=== PATIENT | female | born 1960 | race Caucasian/White ===

== ENCOUNTER 2017-02-08 09:03 | Emergency (ER) | payer MEDICAID ==
[2017-02-08 09:17] VITALS: BP 144/78
[2017-02-08] MEDS ORDERED: Cyclobenzaprine 10 MG Tab PO ONE (09:31)
[2017-02-08] MEDS ORDERED: HYDROmorphone 1 MG/ML Syringe IM ONE (09:31)
--- NOTE | 2017-02-08 09:36 | EDM.PDOC ---
ED HPI GENERAL MEDICAL PROBLEM - General Chief Complaint: Back Pain or Injury Stated Complaint: BACK PAIN Time Seen by Provider: 02/08/17 09:25 Source of Information: Reports: Patient History Limitations: Reports: No Limitations - History of Present Illness INITIAL COMMENTS - FREE TEXT/NARRATIVE: The patient presents with right lower back pain. This started yesterday after she was putting stuff into her storage unit. She did not fall. She has no bowel or bladder problems. She has no numbness or weakness. She has no problems with her back before. Onset: Gradual Duration: Day(s): (Yesterday) Location: Reports: Back (right lower) Quality: Reports: Sharp Severity: Severe Improves with: Reports: None Worsens with: Reports: None Context: Reports: Trauma (The patient was putting stuff in her storage unit yesterday and may have pulled a muscle.) Associated Symptoms: Reports: Other (Low back) Lower Back Pain Score (Numeric/FACES): 10 - Related Data Allergies Allergy/AdvReac Type Severity Reaction Status Date / Time No Known Allergies Allergy Verified 02/08/17 09:10 Home Meds: Home Meds . 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 ROUND BONER History: Reports: Musculoskeletal History: Reports: Arthritis Endocrine/Metabolic History: Reports: Diabetes, Type II Other Endocrine/Metabolic History: diet controlled, takes no meds. - Infectious Disease History Infectious Disease History: Reports: Chicken Pox, Measles, Mumps Social & Family History - Tobacco Use Smoking Status *Q: Never Smoker Second Hand Smoke Exposure: Yes - Caffeine Use Caffeine Use: Reports: Soda - Recreational Drug Use Recreational Drug Use: No ED ROS GENERAL - Review of Systems Review Of Systems: See Below Constitutional: Reports: No Symptoms HEENT: Reports: No Symptoms Respiratory: Reports: No Symptoms Cardiovascular: Reports: No Symptoms Endocrine: Reports: No Symptoms GI/Abdominal: Reports: No Symptoms : Reports: No Symptoms Musculoskeletal: Reports: Back Pain (Right lower back) Skin: Reports: No Symptoms Neurological: Reports: No Symptoms ED EXAM,LOWER BACK PAIN/INJURY - Physical Exam Exam: See Below Exam Limited By: No Limitations General Appearance: Alert, No Apparent Distress Ears: Normal External Exam Nose: Normal Inspection Head: Atraumatic, Normocephalic Neck: Normal Inspection Respiratory/Chest: No Respiratory Distress, Lungs Clear, Normal Breath Sounds Cardiovascular: Regular Rate, Rhythm, No Edema, No Murmur GI/Abdominal: Soft, Non-Tender, No Organomegaly, No Mass Back Exam: Other (Pain upon palpation to the right lower back.) Neurological: Alert, No Motor/Sensory Deficits, Oriented x 3 Course - Vital Signs Last Recorded V/S: Last Vital Signs Temp 98.0 F 02/08/17 09:05 Pulse 77 02/08/17 09:05 Resp 18 02/08/17 09:05 BP 144/78 H 02/08/17 09:05 Pulse Ox 97 02/08/17 09:05 - Re-Assessments/Exams Free Text/Narrative Re-Assessment/Exam: 02/08/17 09:36 I have ordered a shot of dilaudid 1mg IM and flexeril 10mg by mouth. I will give her a prescription for hydrocodone and flexeril. Departure - Departure Time of Disposition: 09:40 Disposition: Home, Self-Care 01 Condition: good Clinical Impression: Low back pain Qualifiers: Chronicity: acute Back pain laterality: right Sciatica presence: without sciatica Qualified Code(s): M54.5 - Low back pain Low back strain Qualifiers: Encounter type: initial encounter Qualified Code(s): S39.012A - Strain of muscle, fascia and tendon of lower back, initial encounter - Discharge Information Referrals: Nancy Oates PA-C [Primary Care Provider] - 1 Week Forms: ED Department Discharge Additional Instructions: Take the flexeril 2 times per day as needed for pain and the hydrocodone for pain. You may also take an antiinflammatory such as motrin or aleve. Follow up with your doctor in 1 week. Please return if you are worse.
== END 2017-02-08 09:55 | disposition home or self-care (01) ==
LOC: JD.ED 09:03
DX: S39.012A Strain of muscle, fascia and tendon of lower back, initial encounter (principal); M54.5 Low back pain
CPT/HCPCS: 96372; 99283; A9270; J1170

== ENCOUNTER 2019-12-16 22:32 | Emergency (ER) | payer OTHER ==
[2019-12-16] MEDS ORDERED: Ondansetron 4 MG Tab.DIS PO ONE (22:56)
--- NOTE | 2019-12-16 23:03 | EDM.PDOC ---
ED HPI GENERAL MEDICAL PROBLEM - General Chief Complaint: Trauma Stated Complaint: HEAD INJURY FROM FALL Time Seen by Provider: 12/16/19 22:42 Source of Information: Reports: Patient History Limitations: Reports: No Limitations - History of Present Illness INITIAL COMMENTS - FREE TEXT/NARRATIVE: A trauma alert was called for this patient. Ms. Dominguez is a pleasant 59-year-old woman with a past medical history significant for prediabetes, who states that she slipped on ice in the parking lot as she was leaving work last night, , 12/15/2019, falling backwards, and striking the back of her head. She was able to describe how her feet suddenly went straight out from underneath her, but she states that her coworkers, who witnessed her fall, told her that she was unconscious for 10 minutes. When she woke up, she states that she felt fine, however, she now presents to the ED because she has been feeling lightheaded, with a headache today. She states that she vomited twice today. She states that there was a slight amount of bleeding from her posterior scalp last night. She states that other than the back right of her head, where she struck the ground, she is uninjured. Here in the ED, the patient's initial BP is found to be elevated at 162/79, otherwise, she is hemodynamically stable, afebrile, saturating 98% on room air. The patient denies recent fever, chills, sore throat, ear pain, nasal or sinus congestion, cough, dyspnea, chest pain, palpitations, nausea, vomiting, constipation, diarrhea, abdominal pain, urinary symptoms, recent weight gain or weight loss, recent bloody bowel movements or black bowel movements, recent joint aches, headaches, or rashes. The patient's PCP is KIMBERLEE Matthew. She did not receive an influenza vaccine this season, and declined an offer to receive one here today. Headache Pain Score (Numeric/FACES): 10 - Related Data Allergies Allergy/AdvReac Type Severity Reaction Status Date / Time No Known Allergies Allergy Verified 12/16/19 22:55 Home Meds: Home Meds Ondansetron [Zofran ODT] 1 tab PO Q8H PRN #10 tab.dis 12/16/19 [Rx] Past Medical History HEENT History: Reports: Impaired Vision Other HEENT History: wears eyeglasses Endocrine/Metabolic History: Reports: Other (See Below) (Prediabetes) - Infectious Disease History Infectious Disease History: Reports: Chicken Pox, Measles, Mumps - Past Surgical History HEENT Surgical History: Reports: Oral Surgery (edentulous) Female Surgical History: Reports: Nephrectomy (right, 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 ED EXAM, GENERAL - Physical Exam Exam: See Below Exam Limited By: No Limitations General Appearance: Alert, WD/WN, No Apparent Distress Eye Exam: Bilateral Eye: EOMI, Normal Inspection, PERRL Ears: Normal External Exam, Normal Canal, Hearing Grossly Normal, Normal TMs Nose: Normal Inspection, Normal Mucosa, No Blood Throat/Mouth: Normal Inspection, Normal Lips, Normal Gums, Normal Oropharynx, Normal Voice, No Airway Compromise, Other (Edentulous) Head: Atraumatic (no visible or palpable abnormality the right occiput, where the patient states she struck her head, such as swelling, erythema, ecchymosis, or abrasion. No tenderness to palpation.), Normocephalic Neck: Normal Inspection, Supple, Non-Tender, Full Range of Motion Respiratory/Chest: No Respiratory Distress, Lungs Clear, Normal Breath Sounds, No Accessory Muscle Use Cardiovascular: Normal Peripheral Pulses, Regular Rate, Rhythm, No Edema, No Gallop, No JVD, No Murmur, No Rub Peripheral Pulses: 4+: Radial (L), Radial (R) GI/Abdominal: Normal Bowel Sounds, Soft, Non-Tender, No Organomegaly, No Distention, No Abnormal Bruit, No Mass (Female) Exam: Deferred Rectal (Female) Exam: Deferred Back Exam: Normal Inspection, Full Range of Motion, NT Extremities: Normal Inspection, Normal Range of Motion, No Pedal Edema, Normal Capillary Refill Neurological: Alert, Oriented, CN II-XII Intact, Normal Cognition, No Motor/ Sensory Deficits Psychiatric: Normal Affect Skin Exam: Warm, Dry, Intact, Normal Color, No Rash Course - Vital Signs Last Recorded V/S: Last Vital Signs Temp 36.3 C 12/16/19 22:42 Pulse 59 L 12/16/19 23:35 Resp 18 12/16/19 23:35 BP 166/59 H 12/16/19 23:35 Pulse Ox 92 L 12/16/19 23:35 - Orders/Labs/Meds Orders: Active Orders 24 hr Category Date Time Status Head wo Cont [CT] Stat Exams 12/16/19 22:58 Taken Meds: Medications Discontinued Medications Generic Name Dose Route Start Last Admin Trade Name Saritha PRN Reason Stop Dose Admin Ondansetron HCl 4 mg 12/16/19 22:56 12/16/19 23:02 Zofran Odt PO 12/16/19 22:57 4 mg ONETIME ONE Administration - Re-Assessments/Exams Free Text/Narrative Re-Assessment/Exam: 12/16/19 22:59 As above, the patient reports that she slipped on ice, falling backwards, striking the back of her head. While she has no amnesia of the event itself, she states that her coworkers told her that she was unconscious for 10 minutes. She states that she then felt fine, but that today she is feeling lightheaded , with a headache, and that she vomited twice today. Her neurologic exam is completely normal, nevertheless, because of her report of vomiting, she does meet NICE criteria to undergo an emergency CT scan of her head, which I have ordered. In the meantime, the patient will be given oral Zofran to treat her current nausea. 12/16/19 23:33 CT of the head without contrast as read by Josue as "mild soft tissue contusion of the posterior head. No acute intracranial process." Based on the above, I will discharge the patient home with a prescription for Zofran. 12/16/19 23:39 The above was discussed with the patient. She would like a note to be off work until Thursday. Departure - Departure Time of Disposition: 23:34 Disposition: Home, Self-Care 01 Condition: Good Clinical Impression: Fall from slipping on ice, Scalp contusion - Discharge Information *PRESCRIPTION DRUG MONITORING PROGRAM REVIEWED*: Not Applicable *COPY OF PRESCRIPTION DRUG MONITORING REPORT IN PATIENT HPU: Not Applicable Prescriptions: Ondansetron [Zofran ODT] 1 tab PO Q8H PRN #10 tab.dis PRN Reason: Nausea/Vomiting Instructions: Facial or Scalp Contusion, [id number] Referrals: Nancy Oates PA-C [Primary Care Provider] - Forms: ED Department Discharge, ED Return to Work/School Form Additional Instructions: You were seen in the emergency room after slipping on ice and falling, striking the back of your head on night. Work-up in the ER included a CT scan of your head, which returned negative. You do not have a skull fracture or an intracranial injury. Based on your history and physical exam, you do not have a concussion, and therefore no special treatment is required. You may take [id number] Tylenol or ibuprofen as needed for scalp discomfort. A prescription for the anti-nausea medicine Zofran has been sent to the [facility], located just south and across the [address] from [facility]. Dissolve 1 tablet of Zofran on your tongue up to every 8 hours, as needed for nausea/vomiting. If any other problems, please do not hesitate to return to the ER. Sepsis Event Note - Evaluation Sepsis Screening Result: No Definite Risk - Focused Exam Vital Signs: Vital Signs Temp Pulse Resp BP Pulse Ox 12/16/19 23:35 59 L 18 166/59 H 92 L 12/16/19 22:42 36.3 C 63 18 162/79 H 98 Date Exam was Performed: 12/17/19 Time Exam was Performed: 01:04 - My Orders Last 24 Hours: My Active Orders 12/16/19 22:58 Head wo Cont [CT] Stat - Assessment/Plan Last 24 Hours: My Active Orders 12/16/19 22:58 Head wo Cont [CT] Stat
[2019-12-16 23:36] VITALS: BP 166/59; PULSE 59
--- NOTE | 2019-12-17 09:55 | CT ---
Head CT Technique: Multiple axial sections through the brain were obtained. Intravenous contrast was not utilized. Comparison: No prior intracranial imaging is available. Findings: Ventricles along with basal cisterns and sulci over the convexities are within normal limits for the patient's age. No abnormal parenchymal densities are seen. No evidence of intracranial hemorrhage. No midline shift or mass-effect is seen. Soft tissue swelling seen within the upper posterior scalp. Bone window settings were reviewed. Nothing acute is seen within the visualized mastoid or visualized paranasal sinuses. No acute calvarial abnormality is identified. Impression: 1. Soft tissue swelling within the upper posterior scalp. 2. No acute intracranial abnormality is identified. Diagnostic code #2 This report was dictated in MDT I agree with preliminary report from Josue, finalized on 12/17/19, 12:27 AM Central Time
== END 2019-12-16 23:55 | disposition home or self-care (01) ==
LOC: JD.ED 22:32
DX: S00.03XA Contusion of scalp, initial encounter (principal); W00.0XXA Fall on same level due to ice and snow, initial encounter; Y92.481 Parking lot as the place of occurrence of the external cause
CPT/HCPCS: 70450; 99284; A9270; 99283

== ENCOUNTER 2020-03-25 16:26 | Emergency (ER) | payer SELFPAY ==
[2020-03-25 17:21] VITALS: BP 148/80; PULSE 77
--- NOTE | 2020-03-25 18:01 | EDM.PDOC ---
ED HPI GENERAL MEDICAL PROBLEM - General Chief Complaint: ENT Problem Stated Complaint: EARS ARE PLUGGED Time Seen by Provider: 03/25/20 17:40 Source of Information: Reports: Patient History Limitations: Reports: No Limitations - History of Present Illness INITIAL COMMENTS - FREE TEXT/NARRATIVE: Ms. Dominguez is a pleasant 60-year-old woman who now presents to the ED stating that she has had off of hearing, with the sensation of her ears being plugged, for the past 2 days. She denies having any ear pain. She denies having a sore throat or rhinorrhea. She states that she had similar symptoms about 6 months ago, which resolved after her ears were irrigated at the walk-in clinic. Here in the ED, the patient's initial BP is found to be mildly elevated at 148/80, otherwise, she is hemodynamically stable, afebrile, saturating 95% on room air. Other than the ear issue, the patient denies recent fever, chills, sore throat, ear pain, nasal or sinus congestion, cough, dyspnea, chest pain, palpitations, nausea, vomiting, constipation, diarrhea, abdominal pain, urinary symptoms, recent weight gain or weight loss, recent bloody bowel movements or black bowel movements, recent joint aches, headaches, or rashes. The patient's PCP is KIMBERLEE Matthew. - Related Data Allergies Allergy/AdvReac Type Severity Reaction Status Date / Time No Known Allergies Allergy Verified 03/25/20 17:20 Home Meds: Home Meds Ondansetron [Zofran ODT] 1 tab PO Q8H PRN #10 tab.dis 12/16/19 [Rx] Past Medical History HEENT History: Reports: Impaired Vision (wears glasses) Endocrine/Metabolic History: Reports: Other (See Below) (Prediabetes) - Infectious Disease History Infectious Disease History: Reports: Chicken Pox, Measles, Mumps - Past Surgical History HEENT Surgical History: Reports: Oral Surgery (Dental extractions) Female Surgical History: Reports: Nephrectomy (right, 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 ED EXAM, ENT - Physical Exam Exam: See Below Exam Limited By: No Limitations General Appearance: Alert, WD/WN, No Apparent Distress Eye Exam: Bilateral Eye: EOMI, Normal Inspection Ears: Normal External Exam, Hearing Grossly Normal (once the cerumen was removed), Normal TMs (once the cerumen was removed), TM Obscured by Cerumen (complete ont he left, near-complete on the right). No: Canal Swelling Nose: Normal Inspection, Normal Mucousa, No Blood Mouth/Throat: Normal Inspection, Normal Gums, Normal Lips, Normal Oropharynx, Other (Edentulous) Head: Atraumatic, Normocephalic Neck: Normal Inspection, Supple, Non-Tender, Full Range of Motion. No: Lymphadenopathy (L), Lymphadenopathy (R) Course - Vital Signs Last Recorded V/S: Last Vital Signs Temp 37.0 C 03/25/20 17:19 Pulse 77 03/25/20 17:19 Resp 16 03/25/20 17:19 BP 148/80 H 03/25/20 17:19 Pulse Ox 95 03/25/20 17:19 - Re-Assessments/Exams Free Text/Narrative Re-Assessment/Exam: 03/25/20 17:55 As above, the patient complained of 2 days of muffled hearing, feeling like her ears were plugged. On examination, her left external auditory canal was comple tely occluded with britney cerumen, while her right external auditory canal was partially occluded. I irrigated both ear canals with warm water, with complete evacuation of the cerumen on the left, and near-complete evacuation of the cerumen on the right. Going forward, I recommended to the patient that she use [id number] Debrox for a few days to soften any earwax, before following up with PCP for ear canal irrigation. Departure - Departure Time of Disposition: 17:57 Disposition: Home, Self-Care 01 Condition: Good Clinical Impression: Impacted cerumen of both ears - Discharge Information *PRESCRIPTION DRUG MONITORING PROGRAM REVIEWED*: Not Applicable *COPY OF PRESCRIPTION DRUG MONITORING REPORT IN PATIENT PHU: Not Applicable Instructions: Earwax Buildup, Adult Referrals: Nancy Oates PA-C [Primary Care Provider] - Forms: ED Department Discharge Additional Instructions: You were seen in the emergency room after having a muffled sound in both of your ears for the past couple of days. On examination, you had complete occlusion of your left ear canal with ear wax, and near-complete occlusion of your right ear canal with earwax. Both of your ear canals were irrigated with warm water, with complete removal of the earwax on the left, and near-complete removal of the earwax on the right. Going forward, if you redevelop symptoms of muffled hearing, we recommend that you use [id number] Debrox in the affected ear for several days, then follow-up with your PCP for ear canal irrigation. If any other problems, please do not hesitate to return to the ER. to return to the ER. Sepsis Event Note (ED) - Evaluation Sepsis Screening Result: No Definite Risk - Focused Exam Vital Signs: Vital Signs Temp Pulse Resp BP Pulse Ox 03/25/20 17:19 37.0 C 77 16 148/80 H 95
== END 2020-03-25 18:30 | disposition home or self-care (01) ==
LOC: JD.ED 16:26
DX: H61.23 Impacted cerumen, bilateral (principal)
CPT/HCPCS: 69209; 99282

== ENCOUNTER 2023-11-02 21:22 | Emergency (ER) | payer SELFPAY ==
[2023-11-02] MEDS: Sodium Chloride 0.9% 10 ML Syringe FLUSH PRN (21:46)
[2023-11-02 21:47] LABS: BASOPHILS ABSOLUTE AUTO 0.1 K/mm3 (0.0-0.2); BASOPHILS PERCENT AUTO 0.5 % (0.0-1.0); EOSINOPHILS ABSOLUTE AUTO 0.2 K/mm3 (0.0-0.4); EOSINOPHILS PERCENT AUTO 1.1 % (0.0-6.0); HEMATOCRIT 41.3 % (37.0-47.0); HEMOGLOBIN 13.8 gm/dl (12.0-16.0); IMMATURE GRAN ABSOLUTE AUTO 0.04 K/mm3 (0.00-0.05); IMMATURE GRAN PERCENT AUTO 0.3 % (0.0-0.4); LYMPHOCYTES ABSOLUTE AUTO 2.1 K/mm3 (1.0-4.8); LYMPHOCYTES PERCENT AUTO 15.1 % (24.0-44.0); MEAN CORPUSCULAR HEMOGLOBIN 31.5 pg (28.0-32.0); MEAN CORPUSCULAR HGB CONC 33.4 g/dl (32.0-36.0); MEAN CORPUSCULAR VOLUME 94.3 fl (83.0-99.0); MEAN PLATELET VOLUME 9.2 fl (9.4-12.3); MONOCYTES ABSOLUTE AUTO 0.9 K/mm3 (0.0-0.8); MONOCYTES PERCENT AUTO 6.3 % (0.0-8.0); NEUTROPHILS ABSOLUTE AUTO 10.4 K/mm3 (1.8-7.7); NEUTROPHILS PERCENT AUTO 76.7 % (41.0-71.0); PLATELET COUNT,PLT 268 K/mm3 (150-400); RED BLOOD CELL COUNT 4.38 M/mm3 (4.10-5.30); WHITE BLOOD CELL COUNT,WBC 13.59 K/mm3 (3.9-11.3)
[2023-11-02 22:07] LABS: A/G RATIO 0.9 (1-2); ALBUMIN 3.3 g/dl (3.4-5.0); ANION GAP 14.7 (5-15); BILIRUBIN TOTAL 0.6 mg/dL (0.2-1.0); BUN/CREATININE RATIO 18.5 (14-18); CALCIUM 8.9 mg/dL (8.5-10.1); CREATININE 1.3 mg/dL (0.55-1.02); EST CRCL DRUG DOSING (CG) 37.59 mL/min; MAGNESIUM 1.8 mg/dL (1.8-2.4); POTASSIUM,K 4.7 mEq/L (3.5-5.1); PROTEIN TOTAL,TP 7.1 g/dl (6.4-8.2)
[2023-11-02 22:18] LABS: CORONAVIRUS COVID-19 NAA NEGATIVE (NEGATIVE); INFLUENZA A NAA NEGATIVE (NEGATIVE); RESPIRATORY SYNCYTIAL VIR NAA NEGATIVE (NEGATIVE)
[2023-11-02 22:39] LABS: HEMOGLOBIN A1C 13.9 %
[2023-11-02] MEDS ORDERED: Sodium Chloride 0.9% 1,000 ML IV SCH (23:15)
[2023-11-02] MEDS: Sodium Chloride 0.9% 100 ML IV SCH (23:25)
[2023-11-02] MEDS: Iopamidol 755 Mg/ML 100 ML Bottle IVPUSH ONE (23:25)
[2023-11-02 23:38] LABS: APPEARANCE,URINE SLT CLOUDY (Clear); BILIRUBIN,URINE NEGATIVE (Negative); COLOR,URINE LIGHT YELLOW (Yellow); GLUCOSE,URINE 2+ (Negative); KETONES,URINE NEGATIVE (Negative); LEUKOCYTE ESTERASE,URINE 1+ (Negative); NITRITE,URINE NEGATIVE (Negative); OCCULT BLOOD,URINE TRACE-LYSED (Negative); PROTEIN,URINE NEGATIVE (Negative); UROBILINOGEN,URINE 0.2 (0.2-1.0)
[2023-11-02 23:57] LABS: RBC,URINE 0-5 /hpf (0-5); WBC CLUMPS,URINE FEW /hpf (NOT SEEN); WBC,URINE 20-30 /hpf (0-5)
[2023-11-02 23:58] LABS: BACTERIA,URINE MANY /hpf (FEW); MUCUS,URINE NOT SEEN /hpf (FEW)
[2023-11-03] MEDS: Insulin Lispro 100 Unit/ML 3 ML KwikPen SUBCUT ONE (01:33)
[2023-11-03] MEDS: Heparin Sodium/D5W 25,000 UNITS/500 ML BAG IV SCH (01:34)
[2023-11-03] MEDS: Heparin Sodium 5,000 Units/ML Vial IVPUSH ONE ×2 (01:34→01:43)
[2023-11-03 02:41] VITALS: BP 138/83; PULSE 107
== END 2023-11-03 02:28 ==
LOC: JD.ED 21:22
DX: E10.22 Type 1 diabetes mellitus with diabetic chronic kidney disease (principal); N18.2 Chronic kidney disease, stage 2 (mild); E10.65 Type 1 diabetes mellitus with hyperglycemia; R79.89 Other specified abnormal findings of blood chemistry
CPT/HCPCS: 0241U; 36415; 71045; 71275; 80053; 81001; 82947; 83036; 83735; 84484; 85025; 85379; 85730; 93005; 96365; 99285; J1644; J1815; J3490; Q9967

== ENCOUNTER 2025-07-10 19:07 | Emergency (ER) | payer SELFPAY ==
[2025-07-10] MEDS ORDERED: Sodium Chloride 0.9% 10 ML Syringe FLUSH PRN (19:28)
[2025-07-10 19:51] LABS: BASOPHILS ABSOLUTE AUTO 0.1 K/mm3 (0.0-0.2); BASOPHILS PERCENT AUTO 0.8 % (0.0-1.0); EOSINOPHILS ABSOLUTE AUTO 0.2 K/mm3 (0.0-0.4); EOSINOPHILS PERCENT AUTO 3.9 % (0.0-6.0); IMMATURE GRAN ABSOLUTE AUTO 0.03 K/mm3 (0.00-0.05); IMMATURE GRAN PERCENT AUTO 0.5 % (0.0-0.4); LYMPHOCYTES ABSOLUTE AUTO 1.4 K/mm3 (1.0-4.8); LYMPHOCYTES PERCENT AUTO 22.5 % (24.0-44.0); MEAN PLATELET VOLUME 8.6 fl (9.4-12.3); MONOCYTES ABSOLUTE AUTO 0.9 K/mm3 (0.0-0.8); MONOCYTES PERCENT AUTO 13.7 % (0.0-8.0); NEUTROPHILS ABSOLUTE AUTO 3.6 K/mm3 (1.8-7.7); NEUTROPHILS PERCENT AUTO 58.6 % (41.0-71.0); NRBC ABSOLUTE 0.00 (0.00-0.02); NRBC PERCENT 0.0 % (0.0-0.2); PLATELET COUNT,PLT 275 K/mm3 (150-400); RED BLOOD CELL COUNT 4.11 M/mm3 (4.10-5.30); WHITE BLOOD CELL COUNT,WBC 6.21 K/mm3 (3.9-11.3)
[2025-07-10 20:16] LABS: LACTIC ACID 0.8 mmol/L (0.4-2.0)
[2025-07-10 20:19] LABS: T4 FREE 1.29 ng/dL (0.76-1.46); TSH 2.03 uIU/mL (0.358-3.74)
[2025-07-10 20:22] LABS: A/G RATIO 0.7 (1-2); ALANINE AMINOTRANSFERASE,ALT 21.0 U/L (14-59); ASPARTATE AMNIOTRANSFERASE,AST 19.0 U/L (15-37); BILIRUBIN TOTAL 0.5 mg/dL (0.2-1.0); BLOOD UREA NITROGEN,BUN 37.0 mg/dL (7-18); CARBON DIOXIDE,CO2 25.0 mEq/L (21-32); CHLORIDE,CL 104.0 mEq/L (98-107); CREATININE 2.0 mg/dL (0.55-1.02); EST CRCL DRUG DOSING (CG) 21.73 mL/min; ESTIMATED GFR 28.0 mL/min (>60); GLUCOSE RANDOM 140.0 mg/dL (70-99); POTASSIUM,K 4.4 mEq/L (3.5-5.1); PROTEIN TOTAL,TP 6.7 g/dl (6.4-8.2); SODIUM,NA 138.0 mEq/L (136-145); TROPONIN I HIGH SENSITIVITY 14.0 pg/mL (<=51)
[2025-07-10 20:58] LABS: APPEARANCE,URINE TURBID (Clear); GLUCOSE,URINE TRACE (Negative); OCCULT BLOOD,URINE 2+ (Negative)
[2025-07-10 21:08] LABS: EPITHELIAL CELLS,URINE 0-5 /hpf (0-5)
[2025-07-10] MEDS: cefTRIAXone 2 GM in Water For Injection, Sterile 20 ML IVPUSH ONE (21:37)
[2025-07-10 23:24] VITALS: BP 171/81; PULSE 80
== END 2025-07-10 23:14 | disposition home or self-care (01) ==
LOC: JD.ED 19:07
DX: R53.1 Weakness (principal); T83.511A Infection and inflammatory reaction due to indwelling urethral catheter, initial encounter; N39.0 Urinary tract infection, site not specified; I25.10 Atherosclerotic heart disease of native coronary artery without angina pectoris; E11.22 Type 2 diabetes mellitus with diabetic chronic kidney disease; N18.2 Chronic kidney disease, stage 2 (mild); Z95.5 Presence of coronary angioplasty implant and graft; Y84.6 Urinary catheterization as the cause of abnormal reaction of the patient, or of later complication, without mention of misadventure at the time of the procedure
CPT/HCPCS: 36415; 71046; 80053; 81001; 82140; 82550; 83605; 83735; 83880; 84100; 84439; 84443; 84481; 84484; 85025; 85652; 86140; 93005; 96374; 99285; A4216; J0696

== ENCOUNTER 2025-07-15 22:21 | Inpatient (IN) | payer MEDICAID, OTHER ==
[2025-07-15 23:19] LABS: BASOPHILS ABSOLUTE AUTO 0.1 K/mm3 (0.0-0.2); BASOPHILS PERCENT AUTO 0.4 % (0.0-1.0); EOSINOPHILS ABSOLUTE AUTO 0.3 K/mm3 (0.0-0.4); EOSINOPHILS PERCENT AUTO 2.7 % (0.0-6.0); IMMATURE GRAN ABSOLUTE AUTO 0.07 K/mm3 (0.00-0.05); IMMATURE GRAN PERCENT AUTO 0.6 % (0.0-0.4); LYMPHOCYTES ABSOLUTE AUTO 1.7 K/mm3 (1.0-4.8); LYMPHOCYTES PERCENT AUTO 14.2 % (24.0-44.0); MEAN PLATELET VOLUME 8.1 fl (9.4-12.3); MONOCYTES ABSOLUTE AUTO 0.6 K/mm3 (0.0-0.8); MONOCYTES PERCENT AUTO 5.1 % (0.0-8.0); NEUTROPHILS ABSOLUTE AUTO 9.1 K/mm3 (1.8-7.7); NEUTROPHILS PERCENT AUTO 77.0 % (41.0-71.0); NRBC ABSOLUTE 0.00 (0.00-0.02); NRBC PERCENT 0.0 % (0.0-0.2); PLATELET COUNT,PLT 290 K/mm3 (150-400); RED BLOOD CELL COUNT 4.29 M/mm3 (4.10-5.30); WHITE BLOOD CELL COUNT,WBC 11.86 K/mm3 (3.9-11.3)
[2025-07-15 23:50] LABS: A/G RATIO 0.8 (1-2); ALANINE AMINOTRANSFERASE,ALT 23.0 U/L (14-59); ASPARTATE AMNIOTRANSFERASE,AST 17.0 U/L (15-37); BILIRUBIN TOTAL 0.3 mg/dL (0.2-1.0); BLOOD UREA NITROGEN,BUN 29.0 mg/dL (7-18); CARBON DIOXIDE,CO2 29.0 mEq/L (21-32); CHLORIDE,CL 104.0 mEq/L (98-107); CREATINE KINASE,CK 185.0 U/L (26-192); CREATININE 1.5 mg/dL (0.55-1.02); EST CRCL DRUG DOSING (CG) 28.97 mL/min; ESTIMATED GFR 39.0 mL/min (>60); GLUCOSE RANDOM 141.0 mg/dL (70-99); LACTIC ACID 0.4 mmol/L (0.4-2.0); PHOSPHORUS 4.0 mg/dL (2.6-4.7); POTASSIUM,K 4.6 mEq/L (3.5-5.1); PROTEIN TOTAL,TP 6.8 g/dl (6.4-8.2); SODIUM,NA 141.0 mEq/L (136-145); TROPONIN I HIGH SENSITIVITY 18.0 pg/mL (<=51)
[2025-07-15 23:52] LABS: ETHANOL BLOOD MEDICAL 0.0 gm% (0.00)
[2025-07-16 01:49] LABS: APPEARANCE,URINE SLT CLOUDY (Clear); GLUCOSE,URINE TRACE (Negative); OCCULT BLOOD,URINE 2+ (Negative)
[2025-07-16 01:58] LABS: BUPRENORPHINE SCREEN,URINE NEGATIVE (CUTOFF=10); METHADONE SCREEN, URINE NEGATIVE (CUTOFF=200); METHAMPHETAMINES SCREEN, URINE NEGATIVE (CUTOFF=500); OXYCODONE SCREEN,URINE NEGATIVE (CUT0FF=100); THC SCREEN,URINE 20 NG/ML NEGATIVE (CUTOFF=50)
[2025-07-16 02:11] LABS: AMPHETAMINES SCREEN, URINE NEGATIVE (CUTOFF=500)
[2025-07-16 02:20] LABS: SQUAMOUS EPITHELIAL CELLS,UR 0-5 /hpf (0-5)
[2025-07-16] MEDS: cefTRIAXone 1 GM in Water For Injection, Sterile 10 ML IVPUSH ONE (03:00)
[2025-07-16] MEDS: Sodium Chloride 0.9% 10 ML Syringe FLUSH PRN ×2 (03:05→04:37)
[2025-07-16] MEDS ORDERED: Naloxone 0.4 MG/ML SDV IVPUSH PRN (03:14)
[2025-07-16] MEDS: Iopamidol 612 MG/ML 100 ML Bottle IVPUSH ONE (04:37)
[2025-07-16] MEDS ORDERED: Acetaminophen/oxyCODONE 325-5 MG Tab PO PRN (05:27)
[2025-07-16] MEDS ORDERED: Ondansetron 4 MG Tab.DIS PO PRN (05:27)
[2025-07-16] MEDS ORDERED: 50% Dextrose in Water 50 ML Syringe IVPUSH PRN (05:57)
[2025-07-16] MEDS: Ondansetron 4 MG/2 ML SDV IV PRN (06:18)
[2025-07-16] MEDS: Insulin Lispro 100 Unit/ML 3 ML KwikPen SUBCUT SCH (06:46)
[2025-07-16] MEDS ORDERED: Labetalol 100 MG/20 ML MDV IVPUSH PRN (07:33)
[2025-07-17] MEDS: cefTRIAXone 1 GM in Water For Injection, Sterile 10 ML IVPUSH SCH (03:29)
[2025-07-17 06:12] LABS: BASOPHILS ABSOLUTE AUTO 0.0 K/mm3 (0.0-0.2); BASOPHILS PERCENT AUTO 0.4 % (0.0-1.0); EOSINOPHILS ABSOLUTE AUTO 0.3 K/mm3 (0.0-0.4); EOSINOPHILS PERCENT AUTO 3.4 % (0.0-6.0); IMMATURE GRAN ABSOLUTE AUTO 0.04 K/mm3 (0.00-0.05); IMMATURE GRAN PERCENT AUTO 0.4 % (0.0-0.4); LYMPHOCYTES ABSOLUTE AUTO 1.5 K/mm3 (1.0-4.8); LYMPHOCYTES PERCENT AUTO 16.5 % (24.0-44.0); MEAN PLATELET VOLUME 8.3 fl (9.4-12.3); MONOCYTES ABSOLUTE AUTO 0.6 K/mm3 (0.0-0.8); MONOCYTES PERCENT AUTO 6.1 % (0.0-8.0); NEUTROPHILS ABSOLUTE AUTO 6.7 K/mm3 (1.8-7.7); NEUTROPHILS PERCENT AUTO 73.2 % (41.0-71.0); NRBC ABSOLUTE 0.00 (0.00-0.02); NRBC PERCENT 0.0 % (0.0-0.2); PLATELET COUNT,PLT 238 K/mm3 (150-400); RED BLOOD CELL COUNT 3.81 M/mm3 (4.10-5.30); WHITE BLOOD CELL COUNT,WBC 9.21 K/mm3 (3.9-11.3)
[2025-07-17 06:56] LABS: A/G RATIO 0.7 (1-2); ALANINE AMINOTRANSFERASE,ALT 10.0 U/L (14-59); ASPARTATE AMNIOTRANSFERASE,AST 17.0 U/L (15-37); BILIRUBIN TOTAL 0.2 mg/dL (0.2-1.0); BLOOD UREA NITROGEN,BUN 24.0 mg/dL (7-18); CARBON DIOXIDE,CO2 27.0 mEq/L (21-32); CHLORIDE,CL 107.0 mEq/L (98-107); CREATININE 1.2 mg/dL (0.55-1.02); EST CRCL DRUG DOSING (CG) 36.21 mL/min; ESTIMATED GFR 51.0 mL/min (>60); GLUCOSE RANDOM 137.0 mg/dL (70-99); POTASSIUM,K 4.2 mEq/L (3.5-5.1); PROTEIN TOTAL,TP 5.7 g/dl (6.4-8.2); SODIUM,NA 140.0 mEq/L (136-145)
[2025-07-17] MEDS: Insulin Lispro 100 Unit/ML 3 ML KwikPen SUBCUT SCH (17:49)
[2025-07-17 18:12] LABS: FOLIC ACID 5.8 ng/mL (8.6-58.9)
[2025-07-18 07:17] LABS: BASOPHILS ABSOLUTE AUTO 0.1 K/mm3 (0.0-0.2); BASOPHILS PERCENT AUTO 0.5 % (0.0-1.0); EOSINOPHILS ABSOLUTE AUTO 0.4 K/mm3 (0.0-0.4); EOSINOPHILS PERCENT AUTO 4.4 % (0.0-6.0); IMMATURE GRAN ABSOLUTE AUTO 0.04 K/mm3 (0.00-0.05); IMMATURE GRAN PERCENT AUTO 0.4 % (0.0-0.4); LYMPHOCYTES ABSOLUTE AUTO 1.7 K/mm3 (1.0-4.8); LYMPHOCYTES PERCENT AUTO 18.2 % (24.0-44.0); MEAN PLATELET VOLUME 8.4 fl (9.4-12.3); MONOCYTES ABSOLUTE AUTO 0.6 K/mm3 (0.0-0.8); MONOCYTES PERCENT AUTO 6.5 % (0.0-8.0); NEUTROPHILS ABSOLUTE AUTO 6.4 K/mm3 (1.8-7.7); NEUTROPHILS PERCENT AUTO 70.0 % (41.0-71.0); NRBC ABSOLUTE 0.00 (0.00-0.02); NRBC PERCENT 0.0 % (0.0-0.2); PLATELET COUNT,PLT 231 K/mm3 (150-400); RED BLOOD CELL COUNT 3.88 M/mm3 (4.10-5.30); WHITE BLOOD CELL COUNT,WBC 9.14 K/mm3 (3.9-11.3)
[2025-07-18 07:34] LABS: BLOOD UREA NITROGEN,BUN 26 mg/dL (7-18); CARBON DIOXIDE,CO2 27 mEq/L (21-32); CHLORIDE,CL 104 mEq/L (98-107); CREATININE 1.2 mg/dL (0.55-1.02); EST CRCL DRUG DOSING (CG) 36.21 mL/min; ESTIMATED GFR 51 mL/min (>60); GLUCOSE RANDOM 127 mg/dL (70-99); POTASSIUM,K 4.2 mEq/L (3.5-5.1); SODIUM,NA 139 mEq/L (136-145)
[2025-07-18] MEDS: Cholecalciferol (Vitamin D3) 5,000 UNIT Cap PO SCH (08:38)
[2025-07-18] MEDS: Sodium Chloride 0.9% 10 ML Syringe FLUSH ONE (19:08)
[2025-07-18] MEDS: Iopamidol 755 Mg/ML 100 ML Bottle IVPUSH ONE (19:08)
[2025-07-18 20:11] LABS: INR 1.01
[2025-07-18 20:12] LABS: PTT,PARTIAL THROMBOPLSTIN TIME 26.7 SECONDS (21.7-31.4)
[2025-07-18 20:14] LABS: BLOOD UREA NITROGEN,BUN 31.0 mg/dL (7-18); CARBON DIOXIDE,CO2 27.0 mEq/L (21-32); CHLORIDE,CL 104.0 mEq/L (98-107); CREATININE 1.3 mg/dL (0.55-1.02); EST CRCL DRUG DOSING (CG) 33.42 mL/min; ESTIMATED GFR 46.0 mL/min (>60); GLUCOSE RANDOM 178.0 mg/dL (70-99); SODIUM,NA 137.0 mEq/L (136-145)
[2025-07-18 20:30] LABS: TSH 1.625 uIU/mL (0.358-3.74)
[2025-07-18 20:32] LABS: POTASSIUM,K 5.8 mEq/L (3.5-5.1)
[2025-07-19 04:53] LABS: BASOPHILS ABSOLUTE AUTO 0.1 K/mm3 (0.0-0.2); BASOPHILS PERCENT AUTO 0.6 % (0.0-1.0); EOSINOPHILS ABSOLUTE AUTO 0.4 K/mm3 (0.0-0.4); EOSINOPHILS PERCENT AUTO 4.1 % (0.0-6.0); IMMATURE GRAN ABSOLUTE AUTO 0.03 K/mm3 (0.00-0.05); IMMATURE GRAN PERCENT AUTO 0.3 % (0.0-0.4); LYMPHOCYTES ABSOLUTE AUTO 1.7 K/mm3 (1.0-4.8); LYMPHOCYTES PERCENT AUTO 18.2 % (24.0-44.0); MEAN PLATELET VOLUME 8.7 fl (9.4-12.3); MONOCYTES ABSOLUTE AUTO 0.7 K/mm3 (0.0-0.8); MONOCYTES PERCENT AUTO 7.8 % (0.0-8.0); NEUTROPHILS ABSOLUTE AUTO 6.5 K/mm3 (1.8-7.7); NEUTROPHILS PERCENT AUTO 69.0 % (41.0-71.0); NRBC ABSOLUTE 0.00 (0.00-0.02); NRBC PERCENT 0.0 % (0.0-0.2); PLATELET COUNT,PLT 231 K/mm3 (150-400); RED BLOOD CELL COUNT 3.74 M/mm3 (4.10-5.30); WHITE BLOOD CELL COUNT,WBC 9.41 K/mm3 (3.9-11.3)
[2025-07-19 05:17] LABS: BLOOD UREA NITROGEN,BUN 29.0 mg/dL (7-18); CARBON DIOXIDE,CO2 27.0 mEq/L (21-32); CHLORIDE,CL 106.0 mEq/L (98-107); CREATININE 1.4 mg/dL (0.55-1.02); EST CRCL DRUG DOSING (CG) 31.04 mL/min; ESTIMATED GFR 42.0 mL/min (>60); GLUCOSE RANDOM 120.0 mg/dL (70-99); POTASSIUM,K 4.5 mEq/L (3.5-5.1); SODIUM,NA 139.0 mEq/L (136-145)
[2025-07-19] MEDS: Sodium Chloride 0.9% 10 ML Syringe FLUSH SCH (10:52)
[2025-07-19] MEDS: Gadobenate Dimeglumine 529 MG/ML 15 ML SDV IVPUSH ONE (10:52)
[2025-07-19 12:18] LABS: CHOLESTEROL HDL 33 mg/dL (40-59); CHOLESTEROL LDL DIRECT 79 mg/dL (<100); CHOLESTEROL TOTAL 145 mg/dL (<200)
[2025-07-19 16:39] VITALS: BP 167/84; PULSE 90
== END 2025-07-19 17:17 | DRG 689 ==
LOC: JD.ED 22:21 → JD.MS 07-16 05:27
PROVIDERS: ADMIT Family Medicine; ATTEND Family Medicine
DX: N39.0 Urinary tract infection, site not specified (principal); I63.9 Cerebral infarction, unspecified; G93.40 Encephalopathy, unspecified; N17.9 Acute kidney failure, unspecified; N18.32 Chronic kidney disease, stage 3b; R53.81 Other malaise; R26.2 Difficulty in walking, not elsewhere classified; N20.0 Calculus of kidney; K76.0 Fatty (change of) liver, not elsewhere classified; K57.30 Diverticulosis of large intestine without perforation or abscess without bleeding; E53.8 Deficiency of other specified B group vitamins; I12.9 Hypertensive chronic kidney disease with stage 1 through stage 4 chronic kidney disease, or unspecified chronic kidney disease; I16.0 Hypertensive urgency; E55.9 Vitamin D deficiency, unspecified; H54.7 Unspecified visual loss; E11.22 Type 2 diabetes mellitus with diabetic chronic kidney disease; E78.00 Pure hypercholesterolemia, unspecified; M19.90 Unspecified osteoarthritis, unspecified site; I65.22 Occlusion and stenosis of left carotid artery; Z90.5 Acquired absence of kidney; Z78.9 Other specified health status; Z79.899 Other long term (current) drug therapy; Z98.890 Other specified postprocedural states
CPT/HCPCS: 36415; 51701; 70450; 70450-26; 70496; 70496-26; 70498; 70498-26; 70553; 70553-26; 71045; 71045-26; 72131; 72131-26; 74177; 74177-26; 80048; 80053; 80061; 80306; 80307; 81001; 82140; 82306; 82550; 82607; 82746; 82947; 83036; 83605; 83735; 84100; 84443; 84484; 85025; 85610; 85730; 86140; 87086; 93005; 93931; 93931-26-RT; 94761; 96374; 97110-GO; 97110-GP; 97162-GP; 97166-GO; 97530-GO; 97530-GP; 97535-GO; 99285-25; A9270-GY; A9577; C1758; J0696; J1650; J2405; J7030; Q9967